=== PATIENT | male | born 1985 | race Caucasian/White ===

== ENCOUNTER 2018-04-15 07:05 | Outpatient (CLI) | payer BC ==
[~2018-04-15] VITALS: Ht 180.3 cm; Wt 95.5 kg
[2018-04-15 07:24] LABS: BASOPHILS 0.4 % (0-2); EOSINOPHILS 2.2 % (0-7); HEMATOCRIT 44.5 % (36.0-48.0); HEMOGLOBIN 15.4 g/dL (12-16); IMMATURE GRANULOCYTES 0.3 % (0-5); LYMPHOCYTES 19.8 % (15-50); MCH 32.4 pg (26.0-34.0); MCHC 34.6 g/dL (31.0-37.0); MCV 93.7 fL (80.0-100.0); MEAN PLATELET VOLUME 9.8 fL (7.4-10.4); MONOCYTES 6.7 % (2-11); NEUTROPHILS 70.6 % (40-80); PLATELET COUNT 274 10x3/uL (130-400); RBC 4.75 10x6/uL (4.00-5.40); RDW 14.4 % (11.5-14.5); WBC 7.6 10x3/uL (4.8-10.8)
[2018-04-15 07:32] LABS: ANION GAP 14.7 mmol/L (8-16); CALCIUM 9.1 mg/dL (8.5-10.1); CARBON DIOXIDE 27.4 mmol/L (21.0-32.0); POTASSIUM - SERUM 4.1 mmol/L (3.5-5.1)
[2018-04-15 07:38] LABS: APTT 23.9 SECONDS (22.8-39.4); INR 0.94 (0.85-1.17); PROTIME 12.2 SECONDS (11.6-15.0)
[2018-04-15 07:46] VITALS: BP 130/77; Ht 180.3 cm; Wt 95.5 kg
== END 2018-04-15 12:17 | disposition home or self-care (01) ==
LOC: D.SP 07:05 → EDSEX 07:05 → D.SP 09:00 → D.CT 09:00 → D.SP 12:17
PROVIDERS: Radiology Vascular & Interventional Radiology
DX: D75.1 Secondary polycythemia (principal); R16.1 Splenomegaly, not elsewhere classified; Z01.812 Encounter for preprocedural laboratory examination